=== PATIENT | male | born 1980 | race Caucasian/White ===

== ENCOUNTER 2022-07-19 09:52 | Emergency (ER) | payer OTHER ==
[~2022-07-19] VITALS: Ht 185.4 cm; Wt 90.7 kg
== END 2022-07-19 10:57 | disposition home or self-care (01) ==
LOC: ED 09:52
DX: T63.441A Toxic effect of venom of bees, accidental (unintentional), initial encounter (principal); Z91.030 Bee allergy status
CPT/HCPCS: 96374; 99282-25; J0171; J1200